=== PATIENT | male | born 1960 | race Caucasian/White ===

== ENCOUNTER 2017-02-18 22:46 | Emergency (ER) | payer SELFPAY ==
[2017-02-18 23:09] VITALS: BP 158/89
== END 2017-02-19 00:49 | disposition left against medical advice (07) ==
LOC: ED 22:46
DX: Z53.21 Procedure and treatment not carried out due to patient leaving prior to being seen by health care provider (principal)

== ENCOUNTER 2017-05-31 10:39 | Emergency (ER) | payer MEDICAID ==
[~2017-05-31] VITALS: Ht 172.7 cm; Wt 84.4 kg
[2017-05-31 10:56] VITALS: Ht 172.7 cm; Wt 84.4 kg
[2017-05-31 12:34] VITALS: BP 127/94
== END 2017-05-31 13:50 | disposition home or self-care (01) ==
LOC: ED 10:39
DX: S09.90XA Unspecified injury of head, initial encounter (principal); I10 Essential (primary) hypertension; M79.89 Other specified soft tissue disorders; Z90.89 Acquired absence of other organs; W45.8XXA Other foreign body or object entering through skin, initial encounter; Y93.89 Activity, other specified; Y92.89 Other specified places as the place of occurrence of the external cause; Y99.8 Other external cause status
CPT/HCPCS: 82962

== ENCOUNTER 2017-07-05 20:06 | Emergency (ER) | payer MEDICAID ==
[~2017-07-05] VITALS: Ht 167.6 cm; Wt 83.9 kg
[2017-07-05 20:26] VITALS: BP 126/81; Ht 167.6 cm; Wt 83.9 kg
== END 2017-07-06 00:11 | disposition left against medical advice (07) ==
LOC: ED 20:06
DX: Z53.21 Procedure and treatment not carried out due to patient leaving prior to being seen by health care provider (principal)

== ENCOUNTER 2017-07-06 07:35 | Emergency (ER) | payer MEDICAID ==
[~2017-07-06] VITALS: Ht 170.2 cm; Wt 83.0 kg
[2017-07-06 07:36] VITALS: Ht 170.2 cm; Wt 83.0 kg
[2017-07-06 08:16] LABS: BASOPHIL % 0.4 % (0-2); PLATELET COUNT 235 x10^3mcL (130-400)
[2017-07-06 08:24] LABS: RED CELL DISTRIBUTION WIDTH 14.7 % (11.5-14.5)
[2017-07-06 08:46] LABS: CALCIUM 8.6 mg/dL (8.5-10.1); CARBON DIOXIDE 29.7 mmol/L (21-32); CHLORIDE SERUM 104 mmol/L (98-107); CREATININE SERUM 1.1 mg/dL (0.7-1.3); GFR1 > 60 mL/min; GLUCOSE SERUM 96 mg/dL (74-106); POTASSIUM SERUM 3.9 mmol/L (3.5-5.1); SODIUM SERUM 138 mmol/L (136-145)
[2017-07-06 08:51] LABS: ALBUMIN 3.5 g/dL (3.4-5.0); ALKALINE PHOSPHATASE 62 U/L (46-116); ALT/SGPT 32 U/L (16-63); AST/SGOT 16 U/L (15-37); BILIRUBIN TOTAL 1.1 mg/dL (0.20-1.00); TOTAL PROTEIN, SERUM 7.5 g/dL (6.4-8.2)
[2017-07-06 09:23] VITALS: BP 118/75
== END 2017-07-06 09:23 | disposition home or self-care (01) ==
LOC: ED 07:35
PROVIDERS: Emergency Medicine
DX: R07.89 Other chest pain (principal); R11.0 Nausea; Z90.89 Acquired absence of other organs
CPT/HCPCS: 36415; 83880; J1885; Q0092

== ENCOUNTER 2019-12-01 13:30 | Emergency (ER) | payer SELFPAY ==
[~2019-12-01] VITALS: Ht 167.6 cm; Wt 83.5 kg
[2019-12-01 16:36] VITALS: BP 123/83
== END 2019-12-01 16:36 | disposition home or self-care (01) ==
LOC: ED 13:30
DX: L03.114 Cellulitis of left upper limb (principal); Z90.89 Acquired absence of other organs
CPT/HCPCS: J7030